=== PATIENT | female | born 1995 | race Caucasian/White ===

== ENCOUNTER 2021-07-04 10:05 | Emergency (ER) | payer MEDICAID ==
[~2021-07-04] VITALS: Ht 185.4 cm; Wt 158.8 kg
[2021-07-04 10:22] VITALS: BP_SYST 141
[2021-07-04] MEDS ORDERED: SULF1TAB47 PO (11:56)
[2021-07-04] MEDS ORDERED: METR-154 PO (11:56)
[2021-07-04] MEDS ORDERED: TRAM50TA PO (11:56)
[2021-07-04] MEDS ORDERED: METF-379 PO (12:05)
== END 2021-07-04 12:25 | disposition home or self-care (01) ==
LOC: SED 10:05
DX: N76.0 Acute vaginitis (principal); B96.89 Other specified bacterial agents as the cause of diseases classified elsewhere; L03.90 Cellulitis, unspecified; N77.1 Vaginitis, vulvitis and vulvovaginitis in diseases classified elsewhere; E11.9 Type 2 diabetes mellitus without complications
CPT/HCPCS: 36415; 81002; 81025; 87491; 99284

== ENCOUNTER 2022-05-11 08:31 | Emergency (ER) | payer MEDICAID ==
[~2022-05-11] VITALS: Ht 185.4 cm; Wt 140.2 kg
[~2022-05-11 08:31] MED LIST: METF-379 PO; METR-154 PO; SULF1TAB47 PO; TRAM50TA PO
[2022-05-11 08:40] VITALS: BP_SYST 182
--- NOTE | 2022-05-11 08:45 | NUR ---
PT ENDORSED TO NED
--- NOTE | 2022-05-11 08:45 | NUR ---
ACCU CHECK 391
--- NOTE | 2022-05-11 08:55 | NUR ---
Patient to ER bed 8 to gown for evaluation. Side rails up. Report given to NED MARTINEZ.
--- NOTE | 2022-05-11 09:00 | NUR ---
ER at bedside examining patient.
[2022-05-11] MEDS ORDERED: KETOROLAC TROMETHAMINE 30 MG VIAL IM ONE (09:15)
--- NOTE | 2022-05-11 09:16 | NUR ---
lab at bedside
[2022-05-11 09:29] LABS: BASOPHILS # (AUTO) 0.1 K/uL (0.0-0.2); BASOPHILS % (AUTO) 0.8 % (0.0-2.0); EOSINOPHILS # (AUTO) 0.1 K/uL (0.0-0.4); EOSINOPHILS % (AUTO) 1.6 % (0.0-4.0); HEMATOCRIT 41.1 % (36-48); HEMOGLOBIN 14.2 g/dL (12.0-16.0); LYMPHOCYTES # (AUTO) 2.1 K/uL (1.0-5.5); LYMPHOCYTES % (AUTO) 21.8 % (20.5-51.5); MEAN CORPUSCULAR HEMOGLOBIN 28 pg (27-31); MEAN CORPUSCULAR HGB CONC 35 % (32-36); MEAN CORPUSCULAR VOLUME 81 fL (79.0-98.0); MONOCYTES # (AUTO) 0.6 K/uL (0.0-1.0); MONOCYTES % (AUTO) 5.9 % (1.7-9.3); NEUTROPHILS # (AUTO) 6.6 K/uL (1.8-7.7); NEUTROPHILS % (AUTO) 69.9 % (40.0-70.0); PLATELET COUNT (AUTO) 227 K/uL (130-430); RED CELL DISTRIBUTION WIDTH 13.3 % (9.0-15.0); WHITE BLOOD COUNT (AUTO) 9.4 K/uL (4.8-10.8)
[2022-05-11 09:39] LABS: ANION GAP 11 (5-15); CALCIUM 9.7 mg/dL (8.4-11.0); CHLORIDE 96 mmol/L (98-107); CREATININE 0.88 mg/dL (0.55-1.30); GFR AFRICAN AMERICAN 99 mL/min (>90); GLUCOSE 395 mg/dL (70-99); UREA NITROGEN, BLOOD 12 mg/dL (8-21)
[2022-05-11 09:46] LABS: ALANINE AMINOTRANSFERASE 48 U/L (12-78); ALBUMIN 3.6 g/dL (3.4-4.8); ASPARTATE AMINOTRANSFERASE 26 U/L (10-37); TOTAL BILIRUBIN 0.4 mg/dL (0.0-1.0)
--- NOTE | 2022-05-11 09:50 | NUR ---
pt is awake a/o x4 and verbally responsive. pt reports continued pain, however pain is only when she moved her left arm, non radiating. made aware
--- NOTE | 2022-05-11 10:40 | NUR ---
pt a/o x4 and verbally responsive. no acute distress noted. breathing even and unlabored. pt denies any pain, reports "its more like soreness"." discharge instructions reviewed with pt, pt verbalized understanding and denied any questions.
[2022-05-11 10:41] VITALS: BP_SYST 147
== END 2022-05-11 10:40 | disposition home or self-care (01) ==
LOC: SED 08:31
DX: R07.89 Other chest pain (principal); R06.02 Shortness of breath; R11.0 Nausea; E11.9 Type 2 diabetes mellitus without complications; I10 Essential (primary) hypertension; Z79.899 Other long term (current) drug therapy
CPT/HCPCS: 99285; 71045; 80053; 82962; 85025; 84484; 36415; 93005; 96372; J1885